=== PATIENT | male | born 1995 | race Caucasian/White ===

== ENCOUNTER 2017-05-30 18:59 | Emergency (ER) | payer BC ==
--- NOTE | 2017-05-30 21:01 | ED ---
Skin Complaint - HPI Summary HPI Summary: 22 y/o male presents to the urgent care c/o a rash in his back , neck and RT arm since Friday05/28/2017. Pt states it itches a lot. He denies any allergies, fever, using new detergent or being outside the country. Pt also states he is just recovering from an URI. Pt denies fever, SOB, chest pain, abdominal pain, N/V/D - History of Current Complaint Chief Complaint: UCSkin Time Seen by Provider: 05/30/17 21:00 Stated Complaint: SKIN Hx Obtained From: Patient Onset/Duration: Started Days Ago - 3 days ago, Still Present Skin Exposure Onset/Duration: Days Ago Timing: Constant Onset Severity: Mild Current Severity: Mild Pain Intensity: 0 Pain Scale Used: 0-10 Numeric Skin Location: Discrete - upper back , neck, RTdorsal side of arm Character: Pruritus, Redness Aggravating Symptom(s): Touch Alleviating Symptom(s): OTC Meds Associated Signs & Symptoms: Rash Related History: Possible Reaction to: Environmental Exposure - Allergy/Home Medications Allergies/Adverse Reactions: Allergies Allergy/AdvReac Type Severity Reaction Status Date / Time No Known Allergies Allergy Verified 05/30/17 19:46 PMH/Surg Hx/FS Hx/Imm Hx Previously Healthy: Yes - Pt denies PMHX Infectious Disease History: No Infectious Disease History: Denies: Traveled Outside the [place] in Last 30 Days - Family History Known Family History: Positive: Hypertension, Diabetes - Social History Alcohol Use: Occasionally Substance Use Type: Reports: None Smoking Status (MU): Never Smoked Tobacco Review of Systems Constitutional: Negative Eyes: Negative ENT: Negative Cardiovascular: Negative Respiratory: Negative Gastrointestinal: Negative Genitourinary: Negative Musculoskeletal: Negative Positive: Rash - discrete itchy rash in the back, neck and RT arm Neurological: Negative Psychological: Normal All Other Systems Reviewed And Are Negative: Yes Physical Exam - Summary Physical Exam Summary: Vital Signs Reviewed: Yes General: well developed, well nourished male sitting in the examining table w/o any apparent distress Eye Exam: Normal Eyes: Positive: Conjunctiva Clear - PERRLA, EOMI, fundi grossly normal ENT: Positive: Normal ENT inspection, Hearing grossly normal, Pharynx normal, TMs normal Neck: Positive: Supple, Nontender, No Lymphadenopathy Respiratory: Positive: Chest non-tender, Lungs clear, Normal breath sounds, No respiratory distress Cardiovascular: Positive: RRR, No Murmur, Pulses Normal, Brisk Capillary Refill Abdomen Description: Positive: Nontender, No Organomegaly, Soft. Negative: CVA Tenderness (R), CVA Tenderness (L) Bowel Sounds: Positive: Present Musculoskeletal: Positive: Strength Intact, ROM Intact, No Edema Neurological: Positive: Alert, Muscle Tone Normal Psychological Exam: Normal Skin: Positive: rashes - Positive erythematous discrete papules grouped in an area of 3cm x2cm in size in the upper back, neck and RT ventral side of RT arm, non tender to palpation, no discharge, swelling observed. Triage Information Reviewed: Yes Vital Signs On Initial Exam: Initial Vitals Temp Pulse Resp BP Pulse Ox 99.6 F 74 12 139/80 97 05/30/17 19:43 05/30/17 19:43 05/30/17 19:43 05/30/17 19:43 05/30/17 19:43 Diagnostics - Vital Signs Vital Signs Temp Pulse Resp BP Pulse Ox 05/30/17 19:43 99.6 F 74 12 139/80 97 - Laboratory Lab Statement: Any lab studies that have been ordered have been reviewed, and results considered in the medical decision making process. Course/Dx - Course Course Of Treatment: 22 y/o male presents to the urgent care c/o a rash in his back , neck and RT arm since Friday05/28/2017. Pt states it itches a lot. He denies any allergies, fever, using new detergent or being outside the country. Pt also states he is just recovering from an URI. Pt denies fever, SOB , chest pain, abdominal pain, N/V/D. Hx obtained. Pt's rash is unspecified , probably contact dermatitis. PT Rx Benadryl PO for pruritus and hydrocortisone cream 1% Pt advised if not improvement or worsening of symptoms to return to the clinic or f/u with PCP for further treatment.PT understood and agreed with D /C instructions - Differential Diagnoses - Skin Complaint Differential Diagnoses: Allergic Reaction, Cellulitis, Contact Dermatitis, Eczema, Local Allergic Reaction, Urticaria - Diagnoses Provider Diagnoses: UNSPECIFIED RASH Discharge - Discharge Plan Condition: Stable Disposition: HOME Prescriptions: diPHENhydraMINE PO* [Benadryl PO 25 MG TAB*] 25 mg PO TID PRN #21 tab PRN Reason: Pruritis Hydrocortisone 1% CREAM* [Hytone Cream 1%*] 1 applic TOPICAL TID #1 tube Patient Education Materials: Urticaria (ED), Acute Rash (ED) Referrals: Arley Valenzuela NP [Primary Care Provider] - 2 Days Additional Instructions: 1-Please apply medication as directed. 2-Take Benadryl PO to alleviate itchiness 3-If symptoms do not improve or worsen please f/u with your PCP 2-3 days or return to the urgent care for further evaluation and treatment.
[2017-05-30] MEDS ORDERED: diPHENhydraMINE PO* 25 MG PO ONE (21:13)
[2017-05-30 21:42] VITALS: BP 127/82
== END 2017-05-30 21:47 | disposition home or self-care (01) ==
LOC: UCEAST 18:59
DX: R21 Rash and other nonspecific skin eruption (principal)
CPT/HCPCS: 99202; A9270-GY; G0463

== ENCOUNTER 2019-04-05 16:09 | Emergency (ER) | payer BC ==
[2019-04-05 17:17] VITALS: BP 149/96
[2019-04-05] MEDS ORDERED: Ibuprofen TAB* 600 MG PO ONE (18:05)
--- NOTE | 2019-04-05 18:07 | UC ---
General HPI - HPI Summary HPI Summary: 24-year-old male comes in with a chief complaint of rash on the right ring finger. He noticed it this morning around 9:00. It was itching quite a bit. After scratching it did have a white ring around it initially there was some white bumps on it. Did not see any vesicles no drainage. He has report itching and no pain. Does not spread anymore. He also has been feeling some generalized body aches and he did have some low back pain briefly but the back pain is better now. He described the body aches is feeling achy has the flu. No runny nose or sore throat. - History of Current Complaint Chief Complaint: Akanksha Stated Complaint: RT RING FINGER BITE/LOW BACK PAIN,WEAKNESS Time Seen by Provider: 04/05/19 17:55 Pain Intensity: 0 - Allergy/Home Medications Allergies/Adverse Reactions: Allergies Allergy/AdvReac Type Severity Reaction Status Date / Time No Known Allergies Allergy Verified 04/05/19 17:17 PMH/Surg Hx/FS Hx/Imm Hx Previously Healthy: Yes - Surgical History Surgical History: None - Family History Known Family History: Positive: Hypertension, Diabetes - Social History Alcohol Use: Occasionally Substance Use Type: None Smoking Status (MU): Never Smoked Tobacco Review of Systems All Other Systems Reviewed And Are Negative: Yes Constitutional: Positive: Other - SEE HPI Skin: Positive: Other - SEE HPI Eyes: Positive: Negative ENT: Positive: Negative Respiratory: Positive: Negative Cardiovascular: Positive: Negative Gastrointestinal: Positive: Negative Motor: Positive: Negative Neurovascular: Positive: Negative Musculoskeletal: Positive: Myalgia Neurological: Positive: Negative Psychological: Positive: Negative Is Patient Immunocompromised?: No Physical Exam Triage Information Reviewed: Yes Appearance: Well-Appearing, No Pain Distress, Well-Nourished Vital Signs: Initial Vital Signs Temp 98.6 F 04/05/19 17:11 Pulse 80 04/05/19 17:11 Resp 18 04/05/19 17:11 BP 149/96 04/05/19 17:11 Pulse Ox 100 04/05/19 17:11 Vital Signs Reviewed: Yes Eye Exam: Normal Eyes: Positive: Conjunctiva Clear Neck: Positive: Supple Respiratory: Positive: No respiratory distress Musculoskeletal: Positive: Strength Intact, ROM Intact Neurological: Positive: Alert Psychological: Positive: Age Appropriate Behavior Skin: Positive: Other - Right index finger has a 1.5 cm diameter area of erythema that's slightly raised. I do not appreciate any vesicles or drainage or streaking. Course/Dx - Course Course Of Treatment: The rash by parents at this time did not appear to be shingles or herpetic ermelinda. Vital signs are normal. Patient reports generalized myalgias that are mild. This time is no focal area for infection. Patient's to get reevaluated if the rash gets worse or he feels worse. Did let him know what herpetic ermelinda and shingles look like that if the rash progressed he should get reevaluated. - Diagnoses Provider Diagnosis: Rash, Myalgia Discharge ED - Sign-Out/Discharge Documenting (check all that apply): Patient Departure All imaging exams completed and their final reports reviewed: No Studies - Discharge Plan Condition: Stable Disposition: HOME Patient Education Materials: Acute Rash (ED) Referrals: Arley Valenzuela NP [Primary Care Provider] - Additional Instructions: FOLLOW UP WITH YOUR DOCTOR IF NOT COMPLETELY IMPROVED. GET REEVALUATED IF THE RASH INCREASES IN SIZE, BECOMES PAINFUL OR DEVELOPS VESICLES. GET REEVALUATED SOONER IF NOT IMPROVING OR YOUR CONDITION WORSENS OR ANY QUESTIONS OR CONCERNS. - Billing Disposition and Condition Condition: STABLE Disposition: Home
== END 2019-04-05 18:14 | disposition home or self-care (01) ==
LOC: UCCORT 16:09
DX: R21 Rash and other nonspecific skin eruption (principal); M79.10 Myalgia, unspecified site; R22.31 Localized swelling, mass and lump, right upper limb
CPT/HCPCS: 99212; A9270-GY; G0463